=== PATIENT | female | born 1950 | race Caucasian/White ===

== ENCOUNTER 2016-09-06 07:11 | Emergency (ER) | payer OTHER ==
[~2016-09-06] VITALS: Ht 160 cm; Wt 85.2 kg
[2016-09-06 07:19] VITALS: BP 143/78; PULSE 64; RESP 16; TEMP 98.4; O2SAT 97
[2016-09-06] MEDS ORDERED: KRIL1CAP9 PO (07:37)
[2016-09-06] MEDS ORDERED: SODIUM CHLOR 0.9% 1000 ML INJ 1,000 ML IV SCH (07:38)
--- NOTE | 2016-09-06 07:42 | PD ---
HPI Chief Complaint: Abdominal Pain Time Seen by Provider: 07:34 Travel History International Travel<30 days: No Contact w/Intl Traveler<30days: No Traveled to known affect area: No History of Present Illness HPI The patient is a 66-year-old female who presents emergency department for abdominal pain. The patient states her abdominal pain started approximately one week ago. Abdominal pain is located in the suprapubic and right lower quadrant area, and the leading, waxes and wanes in intensity, but never resolves completely. The patient denies any accompanying nausea, vomiting , diarrhea, or change in bowel habits. Last bowel movement was yesterday, normal per her report. The patient's only previous abdominal surgery was for an ovarian cyst. She denies any history of pancreatitis or biliary colic. She denies any associated fever, chills, or sweats. The patient's symptoms are moderate without any alleviating or exacerbating factors. PFSH Past Medical History Medical History: Denies Significant Hx Hx Anticoagulant Therapy: No Diabetes: No Immunizations Current: Yes Influenza Vaccination: Yes ?: Not Ovarian Cysts: Yes (REMOVED X 1) Past Surgical History Other Surgery: Yes (LIPOMA REMOVALS X 4, BLOCKED GLAND RIGHT NECK REMOVED) Social History Alcohol Use: Yes (OCC) Tobacco Use: No (NEVER) Substance Use: No Allergies-Medications (Allergen,Severity, Reaction): Coded Allergies: No Known Allergies (Unverified , 09/06/16) Reported Meds & Prescriptions Reported Meds & Active Scripts Active Reported [place]-3 Krill Oil (Krill Oil) 500 Mg Cap 1 Tab PO DAILY Review of Systems Except as stated in HPI: all other systems reviewed are Neg General / Constitutional: No: Fever Cardiovascular: No: Chest Pain or Discomfort Respiratory: No: Shortness of Breath Gastrointestinal: Positive: Abdominal Pain, No: Nausea, Vomiting, Diarrhea, Constipation, Changes in Bowel Habits Genitourinary: No: Dysuria, Hematuria Skin: No Rash Physical Exam Narrative GENERAL: Awake, alert, pleasant 66-year-old female who appears her stated age is in no acute respiratory distress. SKIN: Focused skin assessment warm/dry. HEAD: Atraumatic. Normocephalic. EYES: No injection or drainage. ENT: No nasal bleeding or discharge. Mucous membranes pink and moist. NECK: Trachea midline. No JVD. CARDIOVASCULAR: Regular rate and rhythm. No murmur appreciated. RESPIRATORY: No accessory muscle use. Clear to auscultation. Breath sounds equal bilaterally. GASTROINTESTINAL: Abdomen soft, tender palpation right lower quadrant. No rebound tenderness, guarding, or rigidity. MUSCULOSKELETAL: No obvious deformities. No clubbing. No cyanosis. No edema. NEUROLOGICAL: Awake and alert. No obvious cranial nerve deficits. Motor grossly within normal limits. Normal speech. PSYCHIATRIC: Appropriate mood and affect; insight and judgment normal. Data Data Last Documented VS Vital Signs Date Time Temp Pulse Resp B/P Pulse Ox O2 Delivery O2 Flow Rate FiO2 09/06/16 08:25 61 16 147/83 97 Room Air 09/06/16 07:19 98.4 Orders Complete Blood Count With Diff (09/06/16 07:38) Comprehensive Metabolic Panel (09/06/16 07:38) Lipase (09/06/16 07:38) Lactic Acid (09/06/16 07:38) Urinalysis - C+S If Indicated (09/06/16 07:38) Ct Abd/Pel W/O Iv Contrast (09/06/16 07:38) Iv Access Insert/Monitor (09/06/16 07:38) Ecg Monitoring (09/06/16 07:38) Oximetry (09/06/16 07:38) Sodium Chlor 0.9% 1000 Ml Inj (Ns 1000 M (09/06/16 07:38) Sodium Chloride 0.9% Flush (Ns Flush) (09/06/16 07:45) Labs Laboratory Tests Test 09/06/16 09/06/16 07:48 09:05 White Blood Count 7.6 TH/MM3 Red Blood Count 5.40 MIL/MM3 Hemoglobin 14.9 GM/DL Hematocrit 45.5 % Mean Corpuscular Volume 84.2 FL Mean Corpuscular Hemoglobin 27.5 PG Mean Corpuscular Hemoglobin 32.7 % Concent Red Cell Distribution Width 13.5 % Platelet Count 167 TH/MM3 Mean Platelet Volume 11.0 FL Neutrophils (%) (Auto) 67.2 % Lymphocytes (%) (Auto) 23.9 % Monocytes (%) (Auto) 6.3 % Eosinophils (%) (Auto) 2.0 % Basophils (%) (Auto) 0.6 % Neutrophils # (Auto) 5.1 TH/MM3 Lymphocytes # (Auto) 1.8 TH/MM3 Monocytes # (Auto) 0.5 TH/MM3 Eosinophils # (Auto) 0.2 TH/MM3 Basophils # (Auto) 0.0 TH/MM3 CBC Comment DIFF FINAL Differential Comment Sodium Level 144 MEQ/L Potassium Level 4.0 MEQ/L Chloride Level 109 MEQ/L Carbon Dioxide Level 23.5 MEQ/L Anion Gap 12 MEQ/L Blood Urea Nitrogen 12 MG/DL Creatinine 0.77 MG/DL Estimat Glomerular Filtration 75 ML/MIN Rate Random Glucose 90 MG/DL Lactic Acid Level 1.4 mmol/L Calcium Level 8.8 MG/DL Total Bilirubin 0.5 MG/DL Aspartate Amino Transf 30 U/L (AST/SGOT) Alanine Aminotransferase 54 U/L (ALT/SGPT) Alkaline Phosphatase 87 U/L Total Protein 7.1 GM/DL Albumin 3.7 GM/DL Lipase 124 U/L Urine Collection Type CLEAN CATCH Urine Color YELLOW Urine Turbidity CLEAR Urine pH 5.5 Urine Specific [place] 1.012 Urine Protein NEG mg/dL Urine Glucose (UA) NEG mg/dL Urine Ketones NEG mg/dL Urine Occult Blood NEG Urine Nitrite NEG Urine Bilirubin NEG Urine Leukocyte Esterase TRACE Urine WBC 0-2 /hpf Urine Squamous Epithelial 0-5 /hpf Cells Microscopic Urinalysis Comment CULT NOT INDICATED Urine Collection Time 09:05 [facility] Medical Decision Making Medical Screen Exam Complete: Yes Emergency Medical Condition: Yes Medical Record Reviewed: Yes Interpretation(s) Laboratory Tests Test 09/06/16 09/06/16 07:48 09:05 White Blood Count 7.6 TH/MM3 Red Blood Count 5.40 MIL/MM3 Hemoglobin 14.9 GM/DL Hematocrit 45.5 % Mean Corpuscular Volume 84.2 FL Mean Corpuscular Hemoglobin 27.5 PG Mean Corpuscular Hemoglobin 32.7 % Concent Red Cell Distribution Width 13.5 % Platelet Count 167 TH/MM3 Mean Platelet Volume 11.0 FL Neutrophils (%) (Auto) 67.2 % Lymphocytes (%) (Auto) 23.9 % Monocytes (%) (Auto) 6.3 % Eosinophils (%) (Auto) 2.0 % Basophils (%) (Auto) 0.6 % Neutrophils # (Auto) 5.1 TH/MM3 Lymphocytes # (Auto) 1.8 TH/MM3 Monocytes # (Auto) 0.5 TH/MM3 Eosinophils # (Auto) 0.2 TH/MM3 Basophils # (Auto) 0.0 TH/MM3 CBC Comment DIFF FINAL Differential Comment Sodium Level 144 MEQ/L Potassium Level 4.0 MEQ/L Chloride Level 109 MEQ/L Carbon Dioxide Level 23.5 MEQ/L Anion Gap 12 MEQ/L Blood Urea Nitrogen 12 MG/DL Creatinine 0.77 MG/DL Estimat Glomerular Filtration 75 ML/MIN Rate Random Glucose 90 MG/DL Lactic Acid Level 1.4 mmol/L Calcium Level 8.8 MG/DL Total Bilirubin 0.5 MG/DL Aspartate Amino Transf 30 U/L (AST/SGOT) Alanine Aminotransferase 54 U/L (ALT/SGPT) Alkaline Phosphatase 87 U/L Total Protein 7.1 GM/DL Albumin 3.7 GM/DL Lipase 124 U/L Urine Collection Type CLEAN CATCH Urine Color YELLOW Urine Turbidity CLEAR Urine pH 5.5 Urine Specific [place] 1.012 Urine Protein NEG mg/dL Urine Glucose (UA) NEG mg/dL Urine Ketones NEG mg/dL Urine Occult Blood NEG Urine Nitrite NEG Urine Bilirubin NEG Urine Leukocyte Esterase TRACE Urine WBC 0-2 /hpf Urine Squamous Epithelial 0-5 /hpf Cells Microscopic Urinalysis Comment CULT NOT INDICATED Urine Collection Time 09:05 Last Impressions Abdomen/Pelvis CT 09/06/16 0738 Signed Impressions: Service Date/Time: Tuesday, September 06, 2016 07:46 - CONCLUSION: Fatty liver and colonic diverticuli. Dwight Graham MD Differential Diagnosis Differential diagnosis includes diverticulitis, appendicitis, colitis, enteritis , atypical biliary colic, nephrolithiasis, UTI. Narrative Course IV was established, labs are drawn and sent, and the patient was placed on cardiac telemetry monitoring and continuous pulse oximetry monitoring. The patient declined pain medication. UA was ordered. CT of the abdomen and pelvis was ordered to evaluate for possible appendicitis/diverticulitis. The patient's white count is unremarkable. LFTs and lipase are normal. Lactic acid is normal. CT of the abdomen and pelvis reveals no evidence of diverticulitis or appendicitis. UA is negative. Patient was able to tolerate water without difficulty. Patient will be provided a copy of her CT results and lab results at discharge. She is advised to follow-up with her physician, Dr. Edmund Laguna. Patient will be prescribed anti-inflammatories and muscle relaxers. She is advised to return if symptoms worsen or progress. Diagnosis Primary Impression: Abdominal pain Qualified Code: R10.31 - Right lower quadrant abdominal pain Patient Instructions: General Instructions Additional Instructions: Medications as directed. Follow-up with her primary physician. Please provide the patient a copy of her CT results and lab results at discharge. Follow-up with Dr. dEmund Laguna, your primary physician. Med/Other Pt SpecificInfo: Prescription(s) given Scripts Orphenadrine ER 12 HR (Orphenadrine CR)100 Mg [id number] Mg PO Q12HR #20 TAB Ref 0 Prov:Fabian Estrada MD 09/06/16 Ibuprofen 400 Mg [id number] Mg PO Q6H PRN (PAIN SCALE 1 TO 10) #20 TAB Ref 0 Prov:Fabian Estrada MD 09/06/16 Disposition: DISCHARGE HOME Condition: Stable Fabian Estrada MD Sep 06, 2016 07:42
[2016-09-06] MEDS ORDERED: SODIUM CHLORIDE 0.9% FLUSH 10 ML FLUSH IV FLUSH PRN (07:45)
[2016-09-06 07:48] VITALS: RESP 16; O2SAT 97
[2016-09-06 07:57] LABS: AUTOMATED NEUTROPHIL # 5.1 TH/MM3 (1.8-7.7); BASOPHIL % 0.6 % (0.0-2.0); EOSINOPHIL # 0.2 TH/MM3 (0-0.4); HEMATOCRIT 45.5 % (35.0-46.0); LYMPH % 23.9 % (9.0-44.0); LYMPHOCYTE # 1.8 TH/MM3 (1.0-4.8); MEAN CELL VOLUME 84.2 FL (80.0-100.0); MEAN CORPUSCULAR HEMOGLOBIN 27.5 PG (27.0-34.0); MEAN CORPUSCULAR HGB CONC 32.7 % (32.0-36.0); MONO % 6.3 % (0.0-8.0); NEUT % 67.2 % (16.0-70.0); PLATELET COUNT 167 TH/MM3 (150-450); RED CELL DISTRIBUTION WIDTH 13.5 % (11.6-17.2); WHITE BLOOD COUNT 7.6 TH/MM3 (4.0-11.0)
[2016-09-06 08:01] LABS: HEMO FLAGS DIFF FINAL
[2016-09-06 08:13] LABS: CHLORIDE 109 MEQ/L (98-107); SODIUM (NA) 144 MEQ/L (136-145)
[2016-09-06 08:17] LABS: ANION GAP 12 MEQ/L (5-15); BICARBONATE 23.5 MEQ/L (21.0-32.0); BLOOD UREA NITROGEN 12 MG/DL (7-18)
[2016-09-06 08:20] LABS: ALT (GPT) 54 U/L (10-53); AST (GOT) 30 U/L (15-37); GLOMERULAR FILTRATION RATE 75 ML/MIN (>89)
[2016-09-06 08:22] LABS: TOTAL BILIRUBIN ADULT 0.5 MG/DL (0.2-1.0)
[2016-09-06 08:23] LABS: ALKALINE PHOSPHATASE 87 U/L (45-117)
[2016-09-06 08:25] VITALS: BP 147/83; PULSE 61; RESP 16; O2SAT 97
--- NOTE | 2016-09-06 08:46 | RADHPO ---
EXAM DATE/TIME: 09/06/2016 07:46 [facility] COMPARISON: No previous studies available for comparison. INDICATIONS : Right lower quadrant pain for one week. ORAL CONTRAST: No oral contrast ingested. RADIATION DOSE: 14.66 CTDIvol (mGy) MEDICAL HISTORY : None SURGICAL HISTORY : None. ENCOUNTER: Initial ACUITY: 1 day PAIN SCALE: 5/10 LOCATION: Right lower quadrant TECHNIQUE: Volumetric scanning of the abdomen and pelvis was performed. Using automated exposure control and adjustment of the mA and/or kV according to patient size, radiation dose was kept as low as reasonably achievable to obtain optimal diagnostic quality images. FINDINGS: CT Abdomen: The spleen, pancreas, kidneys, adrenals are unremarkable. There is no evidence for any ap preciable pathological adenopathy, free fluid, or bowel obstruction. The liver is fatty without foca l lesions or technique. There are areas of scarring in both lung bases some of which are pleural base d. CT pelvis: There is no evidence for mass, abscess formation, or any significant adenopathy within the pelvis. There are scattered diverticuli mainly in the sigmoid colon without definite signs of divert iculitis. The appendix is not clearly visualized, however no definite signs of appendicitis is seen. CONCLUSION: Fatty liver and colonic diverticuli. Dwight Graham MD on September 06, 2016 at 8:40 Board Certified Radiologist. This report was verified electronically.
[2016-09-06 09:10] LABS: BLOOD, URINE NEG (NEG); GLUCOSE,URINE NEG (NEG); KETONE, URINE NEG (NEG); NITRITE,URINE NEG (NEG); PH, URINE 5.5 (5.0-8.5)
[2016-09-06 09:17] LABS: COMMENT (UR) CULT NOT INDICATED; CULTURE IF INDICATED CULT NOT INDICATED; METHOD OF COLLECTION CLEAN CATCH; SQUAMOUS EPITHELIAL CELL URINE 0-5 /hpf (0-5); URINE COLOR YELLOW (YELLW/STRAW); WBC, URINE 0-2 /hpf (0-5)
[2016-09-06] MEDS ORDERED: ORPH100T99 PO (09:25)
[2016-09-06] MEDS ORDERED: IBUP400T20 PO (09:25)
[2016-09-06 09:30] VITALS: BP 124/81; PULSE 67; RESP 16; O2SAT 97
== END 2016-09-06 09:42 | disposition home or self-care (01) ==
LOC: PHED 07:11
DX: R10.31 Right lower quadrant pain (principal)
CPT/HCPCS: 74176; 80053; 81001; 83605; 83690; 85025; 96360; 99284; J7030